=== PATIENT | male | born 1945 | race Caucasian/White ===

== ENCOUNTER 2019-03-02 11:31 | Day surgery (SDC) | payer MEDICARE, OTHER ==
[~2019-03-02] VITALS: Ht 177.8 cm; Wt 100.7 kg
[~2019-03-02 11:31] MED LIST: ASPIRIN EC81 MG PO; LISINOPRIL-HCT1 EAC2 PO; MINOCYCLINE HC100 MG PO; MULTI VITAMIN1 EACH PO; SIMVASTATIN20 MG
--- NOTE | 2019-03-02 16:48 | NUR ---
03/02/19 1648 Emmanuelle Osborne 1621 PT ARRIVED IN PACU AWAKE WITH NO C/O'S. 1630 SITTING UP IN BED SIPPING ON WATER TALKING TO STAFF. ABD SOFT. 1645 PT GETTING DRESSED. DC INSTRUCTIONS GIVEN.
--- NOTE | 2019-03-03 11:39 | OR ---
[facility] [address] [place], [place] [address] Signed DATE OF OPERATION: 03/02/2019 SURGEON: Siddhartha Rashid MD PREOPERATIVE DIAGNOSIS: History of hyperplastic polyp in 2007. POSTOPERATIVE DIAGNOSIS: Normal colon to cecum. PROCEDURE PERFORMED: Total colonoscopy to cecum. ANESTHESIA: Intravenous sedation, fentanyl 100 mcg, Versed 4 mg. INDICATIONS: A 74-year-old white man is a patient Dr. Del Cid, who underwent colonoscopy in 2007 at which time he was found to have a hyperplastic polyp. He has no symptoms of bleeding, diarrhea or constipation. He is here for surveillance colonoscopy. He understands the risks of bleeding, infection, and perforation and wished to proceed. FINDINGS: The prep was good. Complete colonoscopy was undertaken to the cecum. He had a somewhat redundant colon requiring abdominal wall stabilization, but there were no problems. He had no sign of polyps, diverticular formation, colitis, or cancer. DESCRIPTION OF PROCEDURE: The patient was brought to the endoscopy suite and placed in lateral decubitus position. He was given intravenous sedation to the point of slurred speech and nystagmus. Digital rectal examination was normal. An Olympus video colonoscope was passed in the rectum and manipulated throughout the colon ultimately intubating the right colon. With various manipulations the scope was passed ultimately to visualize the cecum. A biopsy forceps was used to elevate the tissue behind the ileocecal valve, showing no sign of polyp or abnormality. Scope was then withdrawn. Examination throughout showed no sign of abnormality, specifically no polyps, diverticular formation, colitis or cancer. Retroflex view was normal. Scope was removed. The patient was taken to recovery room in good condition. Electronically Signed By: SIDDHARTHA RASHID MD 03/03/19 1139 PATIENT NAME: TREY MONROE OPERATIVE REPORT DATE OF : 43 REPORT #: [id number] PHYSICIAN: SIDDHARTHA RASHID MD PCP: NATAN DEL CID MD REPORT IS CONFIDENTIAL AND NOT TO BE RELEASED WITHOUT AUTHORIZATION [facility] [address] [facility] [place], [place] [address] Signed CONCLUSION DIAGNOSIS: Normal colon. PLAN: Recommend repeat at 10 years versus expectant management given advanced age of 74 years, either is acceptable under his circumstances of no family history of colon cancer and no prior history of adenomatous polyps. MD DAMARI Melara/RELLL /[id number] cc: Natan Del Cid MD Copies: NATAN DEL CID MD ~ Electronically Signed By: SIDDHARTHA RASHID MD 03/03/19 1139 PATIENT NAME: TREY MONROE OPERATIVE REPORT DATE OF : 43 REPORT #: [id number] PHYSICIAN: SIDDHARTHA RASHID MD PCP: NATAN EDL CID MD REPORT IS CONFIDENTIAL AND NOT TO BE RELEASED WITHOUT AUTHORIZATION
== END 2019-03-02 16:55 | disposition home or self-care (01) ==
LOC: OPS 11:31 → DS 13:00 → OPS 13:00
PROVIDERS: Surgery
PROC: 0DJD8ZZ Inspection of Lower Intestinal Tract, Via Natural or Artificial Opening Endoscopic (ICD-10-PCS; principal; 2019-03-02 13:00)
DX: Z12.11 Encounter for screening for malignant neoplasm of colon (principal); E66.9 Obesity, unspecified; E78.5 Hyperlipidemia, unspecified; I10 Essential (primary) hypertension; Z85.828 Personal history of other malignant neoplasm of skin; Z86.010 Personal history of colon polyps; Z68.31 Body mass index [BMI] 31.0-31.9, adult; Z79.899 Other long term (current) drug therapy
CPT/HCPCS: G0105; J2250; J3010

== ENCOUNTER 2019-06-13 14:54 | Emergency (ER) | payer MEDICARE, OTHER ==
[~2019-06-13] VITALS: Ht 177.8 cm; Wt 100.7 kg
== END 2019-06-13 15:12 | disposition home or self-care (01) ==
LOC: ED 14:54
DX: H57.89 Other specified disorders of eye and adnexa (principal)

== ENCOUNTER 2022-06-24 05:55 | Day surgery (SDC) | payer MEDICARE, OTHER ==
--- NOTE | 2022-06-20 09:45 | NUR ---
PT UA SHOWS UTI AND DR WATERS NOTIFIED, NEW ORDER FOR PT TO OBTAIN ABX'S AT PHARMACY. PT CALLED AND TOLD ABOUT UTI AND HE WILL GO GET ABX'S AND START TODAY PER OUR PHONE CALL.
--- NOTE | 2022-06-20 09:46 | NUR ---
PT CURRENTLY ON ABX'S FOR UTI FROM DR WATERS. HAD PT OBTAIN UA AT THIS TIME. AND WILL TALKED WITH DR WATERS AND WILL OBTAIN UA ON ARRIVAL.
[~2022-06-24] VITALS: Ht 177.8 cm; Wt 97.7 kg
--- NOTE | ~2022-06-24 | OR ---
[facility] [address] [place], [place] [address] Draft DATE OF OPERATION: 06/24/2022 SURGEON: Wilfredo Waters MD PREOPERATIVE DIAGNOSES: 1. Incomplete bladder emptying. 2. Frequent urinary tract infection. 3. Vpiidchb-ct-owojvk bilobar benign prostatic hyperplasia. POSTOPERATIVE DIAGNOSES: 1. Incomplete bladder emptying. 2. Frequent urinary tract infection. 3. Lscvfnfb-uh-xhdqaz bilobar benign prostatic hyperplasia. NAMES OF PROCEDURES: 1. Diagnostic cystoscopy. 2. UroLift procedure. ANESTHESIA: General. ESTIMATED BLOOD LOSS: 15 mL. COMPLICATIONS: None. SPECIMENS: None. DRAINS: None. INDICATIONS FOR PROCEDURE: Mr. Monroe is a very pleasant 77-year-old gentleman, who is well-known to me. He has a history of known relatively asymptomatic BPH with lower urinary tract symptoms. His biggest issue recently has been frequent urinary tract infections. His most recent UTI was last week, and he has been treated with culture directed oral antibiotics, namely oral Levaquin. He recently underwent diagnostic cystoscopy, which revealed maizmyeo-my-iqmskw lateral lobe hypertrophy with no evidence of a median lobe. After PATIENT NAME: TREY MONROE OPERATIVE REPORT DATE OF : 43 REPORT #: [id number] PHYSICIAN: WILFREDO WATERS MD PCP: PHILLIP BOONE MD REPORT IS CONFIDENTIAL AND NOT TO BE RELEASED WITHOUT AUTHORIZATION [address] [place], [place] [address] Draft discussion of the risks and benefits of the procedure, the patient elected to undergo the UroLift procedure. He presents now today to undergo the aforementioned procedure. FINDINGS: 1. Diagnostic cystoscopy reveals no evidence of any suspicious bladder masses, lesions, or stones. Bilateral ureteral orifices are in the normal anatomic location, effluxing clear urine. There is grade 2-3 bladder wall trabeculation noted. Ureteroscopy reveals severe lateral lobe hypertrophy with approximately 3 cm from bladder neck to verumontanum. No median lobe was present. 2. A total of three implants were placed in the right lateral lobe of the prostate, beginning around 2 cm from the bladder neck and evenly spaced down to the level of the verumontanum. Another three implants were placed in the left lateral lobe of the prostate in the same position. DESCRIPTION OF PROCEDURE: After informed consent was obtained, the patient was brought to the operating room and correctly identified with a surgical pause. Details of the procedure and laterality were confirmed. He was placed in the dorsal lithotomy position and his genitalia were prepped and draped in a standard sterile fashion. A 20-Belarusian cystoscope was inserted into the urethral meatus, guided by visual obturator. Inspection of the prostatic urethra was notable for obstruction present as a result of the enlarged lateral lobes. The visual obturator was then replaced with a UroLift 2 system delivery device. The first treatment site was the patient's left side, approximately 1.5 cm distal to the bladder neck. The UroLift 2 system implantation steps were completed as indicated in the product documentation. The capsular tap was successfully deployed, the urethral end piece was successfully affixed to the suture, and the suture was cut. The delivery device was then readvanced into the bladder and then removed from the sheath and the patient. The implant cartridge was removed from the delivery device, replaced with the scope seal, and the simple device was reinserted. The implant location and opening affect was confirmed cystoscopically. The same steps of the procedure were then performed on the right side approximately 1.5 cm from the bladder neck. Followed by two additional implants just proximal to the verumontanum, one on the right and one on the left side of the prostate, following the indicated implantation technique. Intra-procedure cystoscopy then revealed a persistent area of obstruction and two more implants were delivered in the mid prostate, one on the right and one on the left. A final cystoscopy was conducted first to inspect the location and state of each implant and to confirm the presence of a continuous anterior channel from verumontanum to bladder neck. This was noted to be present through the prostatic urethra with irrigation flow turned off. The bladder was then filled with 150 mL of irrigation fluid to assist the patient in a voiding trial after the procedure. All instruments were then removed. The procedure was then terminated. The patient tolerated the procedure well without any complication. He will now be transferred to the Postanesthesia Care Unit in PATIENT NAME: TREY MONROE OPERATIVE REPORT DATE OF : 43 REPORT #: [id number] PHYSICIAN: WILFREDO WATERS MD PCP: PHILLIP BOONE MD REPORT IS CONFIDENTIAL AND NOT TO BE RELEASED WITHOUT AUTHORIZATION [facility] [address] [place] [id number] Draft stable condition. DISPOSITION: The patient will be sent home today with oxycodone 5 mg one tablet p.o. q.6 hours p.r.n. pain, dispense #20, along with Pyridium 200 mg one tablet p.o. up to t.i.d. p.r.n. dysuria, dispense #21. He has been instructed to finish out his existing Levaquin oral antibiotic for at least the next six days. He will return to clinic in two weeks with a PVR for his first postoperative evaluation. Wilfredo Waters MD AR/MODL /[id number] Copies: ~ PATIENT NAME: TREY MONROE OPERATIVE REPORT DATE OF : 43 REPORT #: [id number] PHYSICIAN: WILFREDO WATERS MD PCP: PHILLIP BOONE MD REPORT IS CONFIDENTIAL AND NOT TO BE RELEASED WITHOUT AUTHORIZATION
[~2022-06-24 05:55] MED LIST changes: +FLOMAX0.4 MG PO; +NORVASC10 MG PO; +OSTERA TABLET1 EACH PO
--- NOTE | 2022-06-24 06:48 | NUR ---
0557: PT ARRIVES FOR UROGOLOGY CASE WITH UA ON ARRIVAL ORDERS. PT STATES, "I JUST WENT RIGHT BEFORE I GOT HERE." 0625: PT STILL UNABLE TO VOID AT THIS TIME. DR. WATERS NOTIFIED OF PT STATUS WHO GIVES VERBAL ORDERS TO PLACE A PARKER. 250 ML CLEAR YELLOW URINE EMPTIED FROM BLADDER, PARKER WILL REMAIN IN PLACE PER DR. WATERS. PT TOLERATES PARKER INSERTION WELL.
--- NOTE | 2022-06-24 08:32 | NUR ---
06/24/22 0832 Mirian Chopra 0821- PT ARRIVES TO PACU NONAROUSABLE TO STIMULI WITH AN OPA IN PLACE. RESP EVEN AND UNLABORED. OXYGEN SAT HIGH 90'S TO 100% ON 10L VIA MASK. PT HAVING PAC'S. MC KAY MACHINE OPERATOR AWARE. 0823- PT AROUSING TO STIMULI. PT ABLE TO FOLLOW COMMANDS TO REMOVE THE OPA. OXYGEN MASK REPLACED AT 10L. PT REPORTS NO PAIN OR NAUSEA. 0826- OXYGEN TITRATED OFF. 0828- PT PROVIDED URINAL PER HIS REQUEST.
--- NOTE | 2022-06-24 08:59 | NUR ---
0850: PT ARRIVES TO DS RM 2 VIA STRETCHER FROM PACU AWAKE AND ALERT. PT DENIES NAUSEA, ABLE TO TOLERATE COFFEE AND WATER. PT DENIES PAIN STATES "JUST URGE TO PEE." PT PROVIDED WARM BLANKETS AND APPLESUACE PER REQUEST. DC CRITERIA EXPLAINED, CALL LIGHT WITHIN REACH.
[2022-06-24] MEDS ORDERED: OXYCODONE HCL5 MG PO (09:22)
[2022-06-24] MEDS ORDERED: PYRIDIUM200 MG PO (09:22)
--- NOTE | 2022-06-24 10:15 | NUR ---
0955: PT AWAKE AND ALERT IN STRETCHER. VSS, RESP EVEN AND UNLABORED. DENIES PAIN AND NAUSEA AT THIS TIME. MORE APPLESAUCE, COFFEE AND WATER PROVIDED. PT DENIES DESIRE TO VOID AT THIS TIME. POC DISCUSSED AND PT AGREEABLE. CALL LIGHT WITHIN REACH
--- NOTE | 2022-06-24 10:38 | NUR ---
TO PT ROOM DUE TO CALL LIGHT, PT VOIDED 400ML BRIGHT RED URINE WITH SMALL CLOTS. PRIMARY RN AND MD AWARE, EDUCATION GIVEN TO PT AND AT BEDSIDE. NO OTHER CONCERNS AT THIS TIME.
--- NOTE | 2022-06-24 10:53 | NUR ---
PT GETTING DRESSED AND DENIES CONCERNS. PT AT BEDSIDE HELPING PT GET DRESSED. ALL QUESTIONS ANSWERED.
--- NOTE | 2022-06-24 13:26 | NUR ---
[id number]: PT DRESSED AND DC INSTRUCTIONS PRESENTED VERBALLY AND WRITTEN TO PT AND SPOUSE. PT SPOUSE PULLS PERSONAL VEHICLE TO FRONT ENTRANCE OF HOSPITAL FOR SAFE RIDE HOME. PT DC FROM DS RM 2 VIA WC TO HOME.
== END 2022-06-24 11:30 | disposition home or self-care (01) ==
LOC: DS 05:55
PROVIDERS: ATTEND Urology
PROC: 0T7D8DZ Dilation of Urethra with Intraluminal Device, Via Natural or Artificial Opening Endoscopic (ICD-10-PCS; principal; 2022-06-24 07:30)
DX: N40.1 Benign prostatic hyperplasia with lower urinary tract symptoms (principal); R39.14 Feeling of incomplete bladder emptying; N39.0 Urinary tract infection, site not specified; I10 Essential (primary) hypertension; Z87.891 Personal history of nicotine dependence; N13.8 Other obstructive and reflux uropathy; N20.0 Calculus of kidney
CPT/HCPCS: 81001; J0690; J1100; J1885; J2405; J2704; J2765; J3010; J7121